=== PATIENT | female | born 1955 | race Caucasian/White ===

== ENCOUNTER 2020-09-15 09:52 | Emergency (ER) | payer BC ==
[~2020-09-15 09:52] MED LIST: ABILIFY20 MG PO; CIPRO500 MG PO; CYMBALTA30 MG PO; DIOVAN160 MG PO; NEURONTIN 400400 MG PO; TRAZODONE HCL100 MG PO; VITAMIN D21250 MCG PO; ZOLOFT50 MG PO
[2020-09-15 11:44] LABS: HEMOGLOBIN 12.7 gm/dl (12.3-15.3); RED BLOOD COUNT 4.94 M/UL (4.00-5.10); WHITE BLOOD COUNT 10.4 K/UL (4.5-11.0)
[2020-09-15 12:21] LABS: BUN/CREATININE RATIO 14 (0-10)
[2020-09-15] MEDS ORDERED: CYCLOBENZAPRINE5 MG PO (13:19)
== END 2020-09-15 13:34 | disposition home or self-care (01) ==
LOC: ER1 09:52
PROVIDERS: Physician Assistant
DX: R10.11 Right upper quadrant pain (principal); R10.31 Right lower quadrant pain; R91.1 Solitary pulmonary nodule; I10 Essential (primary) hypertension; Z87.442 Personal history of urinary calculi; Z90.49 Acquired absence of other specified parts of digestive tract; Z88.6 Allergy status to analgesic agent
CPT/HCPCS: 80053; 81001; 83690; 85025; 99284; J7030

== ENCOUNTER → 2020-09-18 | Outpatient (CLI) | payer BC ==
[~2020-09-18] MED LIST changes: +CYCLOBENZAPRINE5 MG PO
== END ==
LOC: KOH-I 09-04 15:30
DX: F17.210 Nicotine dependence, cigarettes, uncomplicated (principal); R91.8 Other nonspecific abnormal finding of lung field
CPT/HCPCS: 71271

== ENCOUNTER → 2020-10-24 | Outpatient (CLI) | payer BC ==
[2020-10-24 12:59] LABS: HEMOGLOBIN 12.5 gm/dl (12.3-15.3); RED BLOOD COUNT 4.97 M/UL (4.00-5.10); WHITE BLOOD COUNT 11.5 K/UL (4.5-11.0)
[2020-10-24 13:10] LABS: BUN/CREATININE RATIO 17 (0-10)
== END ==
LOC: LAB 12:24
PROVIDERS: Physician Assistant
DX: R10.9 Unspecified abdominal pain (principal); M25.551 Pain in right hip
CPT/HCPCS: 36415; 73502; 80048; 85025

== ENCOUNTER → 2021-02-15 | Outpatient (CLI) | payer BC | LOC: HEART 5 09:11 | DX: I10 Essential (primary) hypertension (principal); E78.5 Hyperlipidemia, unspecified; F17.210 Nicotine dependence, cigarettes, uncomplicated; R06.00 Dyspnea, unspecified; R07.89 Other chest pain | CPT/HCPCS: 78452; A9502; J2785 ==

== ENCOUNTER → 2021-03-22 | Outpatient (CLI) | payer BC | LOC: KOH-I 14:01 | DX: R91.1 Solitary pulmonary nodule (principal); R91.8 Other nonspecific abnormal finding of lung field | CPT/HCPCS: 71250 ==

== ENCOUNTER → 2021-05-10 | Outpatient (CLI) | payer BC | LOC: KOH-I 12:00 | DX: M47.26 Other spondylosis with radiculopathy, lumbar region (principal); M48.061 Spinal stenosis, lumbar region without neurogenic claudication; G95.89 Other specified diseases of spinal cord | CPT/HCPCS: 72100 ==

== ENCOUNTER → 2021-12-10 | Outpatient (CLI) | payer BC | LOC: KOH-I 15:53 | DX: N20.0 Calculus of kidney (principal); R14.3 Flatulence | CPT/HCPCS: 74018 ==

== ENCOUNTER → 2022-02-21 | Outpatient (CLI) | payer BC | LOC: CT 11:32 | DX: R10.32 Left lower quadrant pain (principal) | CPT/HCPCS: 36415; 82565; 84520; Q9967 ==